=== PATIENT | male | born 1975 | race Hispanic/Latino ===

== ENCOUNTER 2018-07-27 16:56 | Emergency (ER) | payer OTHER ==
[~2018-07-27] VITALS: Ht 170.2 cm; Wt 127.0 kg
[2018-07-27] MEDS ORDERED: KETOROLAC TROMETHAMINE 30 MG/ML VIAL IM NR (17:30)
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
== END 2018-07-27 20:10 | disposition home or self-care (01) ==
LOC: FSED 16:56
DX: S00.83XA Contusion of other part of head, initial encounter (principal); S16.1XXA Strain of muscle, fascia and tendon at neck level, initial encounter; M54.2 Cervicalgia; V43.52XA Car driver injured in collision with other type car in traffic accident, initial encounter; Y92.488 Other paved roadways as the place of occurrence of the external cause
CPT/HCPCS: 70450; 72125; 99283

== ENCOUNTER 2019-11-20 18:26 | Inpatient (IN) | payer SELFPAY ==
[~2019-11-20] VITALS: Ht 170.2 cm; Wt 127.0 kg
[2019-11-20 10:50] VITALS: BP 125/85
[2019-11-20] MEDS ORDERED: MORPHINE SULFATE INJ 4 MG/ML INJ 1ML IV STA (18:54)
[2019-11-20] MEDS ORDERED: ONDANSETRON HCL INJ 2MG/ML 2ML 2 MG/ML VIAL IV STA (18:54)
--- NOTE | 2019-11-20 18:57 | Emergency Department Note ---
History of Present Illnes History of Present Illness Chief Complaint: Chest Pain History of Present Illness This is a 44 year old male CP since yesterday . Historian: Patient Arrival Mode: Car Onset (how long ago): day(s) Location: substernal CP Radiation: Reports extremity Severity: moderate Duration (how long): day(s) Timing of current episode: constant Progression: worsening Chronicity: new Relieving factors: none Exacerbating factors: none Associated symptoms: Reports chest pain, Reports shortness of breath Past Medical/Family History Physician Review I have reviewed the patient's past medical and family history. Any updates have been documented here. Past Medical History Recent Fever: No Clinical Suspicion of Infectio: No New/Unexplained Change in Ment: No Past Medical History: None Past Surgical History: Appendectomy, T&A Social History Smoking Cessation: Never Smoker Alcohol Use: None Any Illegal Drug Use: No Review of Systems Review of Systems Constitutional: Reports no symptoms EENTM: Reports no symptoms Cardiovascular: Reports chest pain Respiratory: Reports dyspnea Gastrointestinal: Reports no symptoms Genitourinary: Reports no symptoms Musculoskeletal: Reports no symptoms Integumentary: Reports no symptoms Neurological: Reports no symptoms Psychological: Reports no symptoms Endocrine: Reports no symptoms Hematological/Lymphatic: Reports no symptoms Physical Exam Related Data Allergies: Coded Allergies: No Known Allergies (Unverified , 07/27/18) Triage Vital Signs Vital Signs Date Time Temp Pulse Resp B/P (MAP) Pulse Ox O2 Delivery O2 Flow Rate FiO2 11/20/19 18:49 98.1 80 18 157/107 97 Room Air Vital signs reviewed: Yes Physical Exam CONSTITUTIONAL Constitutional: Present well-developed, Present well-nourished HENT HENT: Present normocephalic, Present atraumatic, Present oropharynx clear/maura st, Present nose normal HENT L/R: Present left ext ear normal, Present right ext ear normal EYES Eyes: Reports PERRL, Reports conjunctivae normal NECK Neck: Present ROM normal PULMONARY Pulmonary: Present effort normal, Present breath sounds normal CARDIOVASCULAR Cardiovascular: Present regular rhythm, Present heart sounds normal, Present capillary refill normal, Present normal rate GASTROINTESTINAL Abdominal: Present soft, Present nontender, Present bowel sounds normal GENITOURINARY Genitourinary: Present exam deferred SKIN Skin: Present warm, Present dry MUSCULOSKELETAL Musculoskeletal: Present ROM normal NEUROLOGICAL Neurological: Present alert, Present oriented x 3, Present no gross motor or sensory deficits PSYCHOLOGICAL Psychological: Present mood/affect normal, Present judgement normal Results Laboratory Lab results reviewed: Yes Laboratory comments Laboratory Tests Test 11/20/19 18:59 White Blood Count 9.65 x10e3/uL (4.8-10.8) Red Blood Count 4.94 x10e6/uL (4.3-5.7) Hemoglobin 14.5 g/dL (14.0-18.0) Hematocrit 45.2 % (38.2-49.6) Mean Corpuscular Volume 91.5 fL (81-99) Mean Corpuscular Hemoglobin 29.4 pg (28-32) Mean Corpuscular Hemoglobin Concent 32.1 g/dL (31-35) Red Cell Distribution Width 13.3 % (11.7-14.4) Platelet Count 147 x10e3/uL (140-360) Neutrophils (%) (Auto) 74.7 % (38.7-80.0) Lymphocytes (%) (Auto) 16.3 % (18.0-39.1) Monocytes (%) (Auto) 6.4 % (4.4-11.3) Eosinophils (%) (Auto) 1.8 % (0.0-6.0) Basophils (%) (Auto) 0.4 % (0.0-1.0) Neutrophils # (Auto) 7.2 (2.1-6.9) Lymphocytes # (Auto) 1.6 (1.0-3.2) Monocytes # (Auto) 0.6 (0.2-0.8) Eosinophils # (Auto) 0.2 (0.0-0.4) Basophils # (Auto) 0.0 (0.0-0.1) Absolute Immature Granulocyte (auto 0.04 x10e3/uL (0-0.1) Sodium Level 137 mmol/L (136-145) Potassium Level 3.8 mmol/L (3.5-5.1) Chloride Level 102 mmol/L (98-107) Carbon Dioxide Level 26 mmol/L (22-29) Anion Gap 12.8 mmol/L (8-16) Blood Urea Nitrogen 11 mg/dL (7-26) Creatinine 1.61 mg/dL (0.72-1.25) Estimat Glomerular Filtration Rate 47 ML/MIN (60-) BUN/Creatinine Ratio 7 (6-25) Glucose Level 110 mg/dL (74-118) Calcium Level 9.1 mg/dL (8.4-10.2) Total Bilirubin 0.4 mg/dL (0.2-1.2) Aspartate Amino Transf (AST/SGOT) 31 IU/L (5-34) Alanine Aminotransferase (ALT/SGPT) 21 IU/L (0-55) Alkaline Phosphatase 71 IU/L (40-150) Creatine Kinase 265 IU/L (30-200) Creatine Kinase MB 19.20 ng/mL (0-5.0) Troponin I 2.686 ng/mL (0-0.300) Total Protein 7.5 g/dL (6.5-8.1) Albumin 3.4 g/dL (3.5-5.0) Globulin 4.1 g/dL (2.3-3.5) Albumin/Globulin Ratio 0.8 (0.8-2.0) Imaging Imaging results reviewed: Yes Impressions [place] [id number] Patient Name: LUZ ANTONIO JR MR #: [id number] : 1975 Age/Sex: 44/M Req #: [id number] Adm Physician: Ordered by: ROSA WEI DO Report #: [id number] Location: ER Room/Bed: Procedure: [id number] DX/CHEST SINGLE (PORTABLE) Exam Date: 11/20/19 Exam Time: 1919 REPORT STATUS: Signed EXAMINATION: CHEST SINGLE (PORTABLE) INDICATION: Left-sided chest pain. COMPARISON: None FINDINGS: TUBES and LINES: None. LUNGS: Mild patchy density in the right lung base associated with mild to moderate elevation of the right hemidiaphragm atelectasis. PLEURA: No pleural effusion or pneumothorax. HEART AND MEDIASTINUM: The cardiomediastinal silhouette is unremarkable. BONES AND SOFT TISSUES: No acute osseous lesion. Soft tissues are unremarkable. UPPER ABDOMEN: No free air under the diaphragm. IMPRESSION: Right basilar atelectasis.. Signed by: Dr. Yaritza Grier M.D. on 11/20/2019 8:12 PM Dictated By: MARIZA GRIER MD, MD 11 Transcribed By: GENO on 11/20/192011 COPY TO: ROSA WEI DO~ Procedures 12 Lead ECG Interpretation ECG Interpretation : ECG: ECG 1 Pneumatic Tube Repairer: Interpreted by ED physician Date: Nov 20, 2019 Time: 18:56 Prior ECG tracings: reviewed Rhythm: sinus rhythm Rate: normal QRS axis: normal ST segments normal: Yes T waves normal: Yes Clinical Impression: normal ECG Critical Care Time Total Critical Care Time (min): 31 Critical care time exclusive o: separately billable procedures Critcal care necessary due to: cardiac failure Critcal care time spent by me: develop tx plan w patient/surrogate, discussion w consultants, examination of patient, obtaining hx from patient/surrogate, order/perform tx or interventions, order/review laboratory studies, order/review radiographic studies, pulse oximetry, re-evaluation of patient condition Assessment & Plan Medical Decision Making MDM 44 yom presents with CP . ACS, PE, costocondritis, Chest wall pain, and pneumothorax considered. labs, imaging and EKG reviewed . Plan to admit to the hospital for formal cardiac evaluation Assessment & Plan Final Impression: (1) Non-STEMI (non-ST elevated myocardial infarction) (2) Abnormal renal function Last Vital Signs Date Time Temp Pulse Resp B/P (MAP) Pulse Ox O2 Delivery O2 Flow Rate FiO2 11/20/19 18:49 98.1 80 18 157/107 97 Room Air ROSA WEI DO Nov 20, 2019 18:57
[2019-11-20] MEDS ORDERED: ASPIRIN 81 MG CHEW TAB PO ONE (19:00)
[2019-11-20 19:26] LABS: BASOPHILS % 0.4 % (0.0-1.0); EOSINOPHILS # (AUTO) 0.2 (0.0-0.4); EOSINOPHILS % 1.8 % (0.0-6.0); HEMATOCRIT 45.2 % (38.2-49.6); HEMOGLOBIN 14.5 g/dL (14.0-18.0); LYMPHOCYTES # (AUTO) 1.6 (1.0-3.2); LYMPHOCYTES % 16.3 % (18.0-39.1); MEAN CORPUSCULAR HEMOGLOBIN 29.4 pg (28-32); MEAN CORPUSCULAR HGB CONC 32.1 g/dL (31-35); MEAN CORPUSCULAR VOLUME 91.5 fL (81-99); MONOCYTES # (AUTO) 0.6 (0.2-0.8); MONOCYTES % 6.4 % (4.4-11.3); NEUTROPHILS # (AUTO) 7.2 (2.1-6.9); NEUTROPHILS % 74.7 % (38.7-80.0); PLATELET COUNT 147 x10e3/uL (140-360); RED BLOOD COUNT 4.94 x10e6/uL (4.3-5.7); RED CELL DISTRIBUTION WIDTH 13.3 % (11.7-14.4)
[2019-11-20 19:48] LABS: ALBUMIN 3.4 g/dL (3.5-5.0); ALBUMIN/GLOBULIN RATIO 0.8 (0.8-2.0); ANION GAP 12.8 mmol/L (8-16); CALCIUM 9.1 mg/dL (8.4-10.2); CREATININE, SERUM 1.61 mg/dL (0.72-1.25); POTASSIUM 3.8 mmol/L (3.5-5.1)
[2019-11-20 19:56] LABS: CREATINE KINASE MB 19.2 ng/mL (0-5.0)
--- NOTE | 2019-11-20 20:15 | Diagnostic Imaging Report ---
EXAMINATION: CHEST SINGLE (PORTABLE) INDICATION: Left-sided chest pain. COMPARISON: None FINDINGS: TUBES and LINES: None. LUNGS: Mild patchy density in the right lung base associated with mild to moderate elevation of the right hemidiaphragm atelectasis. PLEURA: No pleural effusion or pneumothorax. HEART AND MEDIASTINUM: The cardiomediastinal silhouette is unremarkable. BONES AND SOFT TISSUES: No acute osseous lesion. Soft tissues are unremarkable. UPPER ABDOMEN: No free air under the diaphragm. IMPRESSION: Right basilar atelectasis.. Signed by: Dr. Yaritza Barron M.D. on 11/20/2019 8:12 PM
[2019-11-20] MEDS ORDERED: ENOXAPARIN SODIUM INJ 100 MG/ML SYR SC STA (20:44)
[2019-11-20] MEDS ORDERED: ONDANSETRON HCL INJ 2MG/ML 2ML 2 MG/ML VIAL IV PRN (20:45)
[2019-11-20] MEDS ORDERED: CLOPIDOGREL BISULFATE 75 MG TAB PO ONE (20:45)
[2019-11-20] MEDS ORDERED: MORPHINE SULFATE INJ 4 MG/ML INJ 1ML IV PRN (20:45)
[2019-11-20] MEDS: ASPIRIN 81 MG CHEW TAB PO ONE ×2 (23:27→23:28)
[2019-11-20 23:55] VITALS: BP 140/102
[2019-11-21] VITALS (8 sets, daily range): BP systolic 125–147; BP diastolic 92–102
[2019-11-21] MEDS ORDERED: PHENAZOPYRIDIN100 MG PO (01:10)
[2019-11-21] MEDS ORDERED: BACTRIM DS TAB1 EACH PO (01:10)
--- NOTE | 2019-11-21 01:12 | NUR ---
PT IS TRANSFERRED FROM ER .PT IS AOX3 .RESPIRATIONS ARE EVEN AND UN LABORED .SKIN WARM AND DRY TO TOUCH RT AC 2O G S/L ,DENIES CHEST PAIN NOW ORIENTED PT TO THE ENVIRONMENT TELE #9 SHOWS SR.CALL LIGHT WITH IN REACH .CONTINUE TO MONITOR
[2019-11-21 06:02] LABS: BASOPHILS % 0.2 % (0.0-1.0); EOSINOPHILS # (AUTO) 0.1 (0.0-0.4); EOSINOPHILS % 1.3 % (0.0-6.0); HEMATOCRIT 42.5 % (38.2-49.6); HEMOGLOBIN 13.7 g/dL (14.0-18.0); LYMPHOCYTES # (AUTO) 2.1 (1.0-3.2); LYMPHOCYTES % 23.6 % (18.0-39.1); MEAN CORPUSCULAR HEMOGLOBIN 29.6 pg (28-32); MEAN CORPUSCULAR HGB CONC 32.2 g/dL (31-35); MEAN CORPUSCULAR VOLUME 91.8 fL (81-99); MONOCYTES # (AUTO) 0.7 (0.2-0.8); MONOCYTES % 7.4 % (4.4-11.3); NEUTROPHILS % 67.2 % (38.7-80.0); PLATELET COUNT 144 x10e3/uL (140-360); RED BLOOD COUNT 4.63 x10e6/uL (4.3-5.7); RED CELL DISTRIBUTION WIDTH 13.5 % (11.7-14.4)
--- NOTE | 2019-11-21 06:02 | NUR ---
PT C/O CHEST PAIN AND GIVEN MORPHINE ,PT RESTING ,CALL LIGHT WITH IN REACH ,CONTINUE TO MONITOR
[2019-11-21 06:45] LABS: ALBUMIN 3.1 g/dL (3.5-5.0); ALBUMIN/GLOBULIN RATIO 0.8 (0.8-2.0); ANION GAP 12.8 mmol/L (8-16); CREATININE, SERUM 1.71 mg/dL (0.72-1.25); POTASSIUM 3.8 mmol/L (3.5-5.1)
--- NOTE | 2019-11-21 07:00 | NUR ---
bedside shift report received pt in stable condition, denies pain at this time updated on poc vocied, understanding, call light in reach will continue to monitor
--- NOTE | 2019-11-21 07:14 | NUR ---
BEDSIDE REPORT GIVEN TO THE ONCOMING NURSE NO ACUTE DISTRESS NOTED
[2019-11-21 07:40] LABS: CREATINE KINASE MB 12.2 ng/mL (0-5.0)
--- NOTE | 2019-11-21 07:45 | NUR ---
consent signed for l heart cath, ivf infusing at 200cc/hr,will continue to monitor
[2019-11-21 08:00] LABS: CHOL/HDL RATIO 4.9 (3.9-4.7)
[2019-11-21] MEDS: SODIUM CHLORIDE 0.9% 1000ML 1,000 ML IV SCH ×3 (08:00→23:14)
--- NOTE | 2019-11-21 08:17 | Consultation ---
DATE OF CONSULTATION: 11/21/2019 REASON FOR CONSULTATION: Chest pain, elevated troponin. CHIEF COMPLAINT: Chest pain. HISTORY OF PRESENT ILLNESS: This is a 44-year-old male with no medical history. However, the patient presents to [facility] ER with complaints of chest pain, was noted elevated troponin of 2.6. Cardiology was consulted to evaluate the patient. The patient was loaded with Plavix and Lovenox on arrival to the ER. The patient was seen this a.m., reports 2 days ago woke up with chest pain, mild in nature, pressure tightness, however, . He went to clinic with symptoms, was given a prescription for possible UTI, however, was told to go to the nearest ER. The patient shows up in the ER yesterday with worsening chest pain, pressure, tightness, radiating to his left arm with shortness of breath and nausea. However, since then, the patient reports chest pain has improved, but continues with chest pain. Left heart catheterization discussed at length with the patient including risks and benefits. Questions were answered. The patient wishes to proceed with left heart catheterization. PAST MEDICAL HISTORY: Denies any medical history. PAST SURGICAL HISTORY: Reports appendectomy and had T and A. FAMILY HISTORY: Father at the age 58 from myocardial infarction. Mother apparently is alive with a history of CVA. SOCIAL HISTORY: He is . He is a food truck caterer. He denies any alcohol use or tobacco use. MEDICATIONS: Denies any medications; however, was prescribed antibiotics for possible UTI. ALLERGIES: NO KNOWN ALLERGIES. REVIEW OF SYSTEMS: GENERAL: Denies any weight changes, fatigue, weakness, fevers, chills, or night sweats. SKIN: No rashes or bruises. HEENT: Denies any vomiting. Positive for nausea. No vision change, blurred vision, double vision, epistaxis, sore throat, swollen gums, or stiff neck. CARDIAC: Positive for chest pain as in HPI. Shortness of breath. Positive dyspnea on exertion. No orthopnea, PND, or lower extremity edema. RESPIRATORY: Positive for shortness of breath. Denies any hemoptysis, any coughing, any recent sick contacts. GI: Reports good appetite. Positive nausea. No vomiting. Denies any melena, tarry or bloody stools. VASCULAR: Denies any lower extremity edema or claudication. MUSCULOSKELETAL: Denies any muscle weakness. Positive for generalized joint pains, back pains. NEUROLOGIC: Denies any numbness, tingling, tremors, paralysis, fainting, seizures. HEMATOLOGY: Denies any bleeding or bruising. ENDOCRINE: Denies any heat or cold intolerance, polyuria, polydipsia, or polyphagia. PHYSICAL EXAMINATION: VITAL SIGNS: Height 67 inches, weight 280 pounds. Current temperature 98, pulse 103, respiratory rate 24, blood pressure 140/100, pulse ox 95% on room air. GENERAL APPEARANCE: Stated age, reliable informant. SKIN: No rashes or bruises noted. HEENT: Normocephalic. Pupils equal and reactive. Extraocular movements intact. Trachea midline. No JVD. No carotid bruit. HEART: Regular rate and rhythm. PMI about 4th intercostal space. LUNGS: Bilateral breath sounds. Clear to auscultation. Good airway entry. ABDOMEN: Soft, nontender, and nondistended. No organomegaly noted. MUSCULOSKELETAL: Good muscle strength throughout. No lower extremity edema noted. VASCULAR: +2 radial pulses bilaterally, +1 DP and PT pulses bilaterally. NEUROLOGIC: Cranial nerves 2 through 12 seem intact. LABORATORY DATA: Sodium 138, potassium 3.0, chloride 104, bicarb 27, BUN 12, creatinine 1.7, glucose 108. Troponin 2.6. White count 9, hemoglobin of 13.7, hematocrit 42, and platelets 144. Chest x-ray showing some right basilar atelectasis. EKG showing normal sinus rhythm. ASSESSMENT: 1. Awp-[id number] myocardial infarction with typical symptoms. 2. Hypertension. 3. Acute kidney injury. 4. Obesity. PLAN: The patient presents with chest pain with elevated troponin, non-STEMI in nature. Left heart catheterization discussed at length with the patient including risks and benefits. Questions were answered. The patient wishes to proceed with left heart catheterization. The patient has been loaded with Plavix. Aspirin/statin/beta-lance therapy. We will start IV fluids. Discussed that with nurse. Echo to evaluate heart function and structure. Further recommendations post left heart catheterization. Thank you very much for this consult. Seen and examined Agree with note Dictated by Vaughn Jacome NP Jarrod Alicia MD DC/FLORY /[id number] MTDD
[2019-11-21] MEDS ORDERED: MIDAZOLAM HCL 2 MG/2 ML VIAL ONE (08:31)
[2019-11-21] MEDS ORDERED: LIDOCAINE HCL 2% LOCAL 20 ML VIAL ONE (08:32)
[2019-11-21] MEDS ORDERED: FENTANYL CITRATE/PF 100MCG/2 ML INJ ONE (08:32)
[2019-11-21] MEDS ORDERED: HEPARIN SOD/SOD CHLORIDE 2,000 ML ONE (08:32)
[2019-11-21] MEDS ORDERED: IOPAMIDOL 370 MG/ML 200 ML INFUS..BTL INJ ONE ×2 (08:33→20:20)
[2019-11-21] MEDS ORDERED: SODIUM CHLORIDE 0.9% 1000ML 1,000 ML ONE (08:33)
--- NOTE | 2019-11-21 08:48 | NUR ---
down to laborer demolition left in stable condition
[2019-11-21] MEDS ORDERED: SODIUM CHLORIDE 0.9% 50ML 0 ML ONE (08:55)
[2019-11-21] MEDS ORDERED: BIVALRIUDIN 250 MG/VIAL VIAL IV ONE (08:55)
[2019-11-21] MEDS ORDERED: EPTIFIBATIDE 75mg 100ML 0 ML ONE (08:56)
[2019-11-21] MEDS ORDERED: EPTIFIBATIDE 0 ML ONE (08:56)
--- NOTE | 2019-11-21 09:33 | History and Physical ---
CHIEF COMPLAINT: Chest pain, non-ST elevation myocardial infarction associated with increase in troponin. HISTORY OF PRESENT ILLNESS: The patient is a 44 years old male, who recently had a bladder prostate infection, was on Bactrim and Pyridium, came to the hospital with increasing chest pain. His cardiac enzyme troponin I is positive at 2.6. The patient was seen by Dr. Jarrod Alicia. The patient will need cardiac catheterization. He was loaded with Plavix and Lovenox. The patient is otherwise stable at this time. The patient had chest pain off and on for the past 2 days or so, but woke him up severely with chest pressure and tightness. The patient is otherwise stable. PAST MEDICAL HISTORY: Urinary tract infection and prostatitis. PAST SURGICAL HISTORY: Appendectomy. SOCIAL HISTORY: The patient does not smoke or use alcohol. He is a milk pickup truck driver. He is , lives with his family. FAMILY HISTORY: Significant for coronary artery disease. His father at age of 58 from myocardial infarction. Mother apparently with history of CVA. Hypertension. HOME MEDICATIONS: Bactrim and Pyridium. ALLERGIES: NO KNOWN ALLERGIES. REVIEW OF SYSTEMS: As mentioned above. PHYSICAL EXAMINATION: VITAL SIGNS: Temperature is 98, blood pressure 140/102, pulse rate is 103, respirations 22. GENERAL: The patient is not in acute distress. He is awake. HEENT: Normocephalic and atraumatic. He is anicteric. NECK: Supple grossly. PULMONARY: Diminished breath sounds. CARDIOVASCULAR: S1 and S2. Tachycardia. ABDOMEN: Soft, moderately obese. Positive bowel sounds. Nontender and nondistended. EXTREMITIES: No cyanosis or edema. NEUROLOGIC: No gross focal deficit. LABORATORY DATA: WBC is 9.6, hemoglobin 14, hematocrit 45, platelets 147. Chemistry; sodium 137, potassium 3.8, chloride 102, bicarb 26, BUN is 11, creatinine 1.6, glucose is 110. CK is 265, CK-MB 19, troponin I is 2.682 and then 3.2. LDL is 108, triglyceride 155. Chest x-ray, right basilar atelectasis. IMPRESSION: 1. [id number] myocardial infarction. 2. Mild acute kidney injury, most likely secondary to multifactorial including possible induced by Bactrim. PLAN: Continue with IV fluids. Cardiac catheterization. Repeat lab work. May need renal consult pending on tomorrow's creatinine. Mucomyst. We will monitor the patient closely. Echocardiogram has been ordered. MD ANILA Pyle/FLORY /[id number]
--- NOTE | 2019-11-21 10:00 | NUR ---
back to rm, r groin soft nontender, vs stable 131/91,81, pedal pulses palpable no other co voiced call light in reach will continue to monitor
[2019-11-21] MEDS: METOPROLOL TARTRATE 25 MG TAB PO SCH ×2 (10:19→16:38)
[2019-11-21] MEDS: ASPIRIN 81 MG ENTERIC COATED PO SCH (10:19)
--- NOTE | 2019-11-21 10:23 | Operative Report ---
DATE OF PROCEDURE: SURGEON: Jarrod Alicia MD PROCEDURE PERFORMED: Left cardiac catheterization. INDICATIONS: Chest pain with troponin at 3.8 and second troponin at 2.8. The patient continued to have chest pain. TECHNICAL DETAILS: After the usual sterile preparation and draping procedure, intravenous Versed and fentanyl given for sedation. Xylocaine for local anesthesia. A 4-Indonesian sheath established in the right common femoral artery. Regan left 4 and 3DRC catheters to engage the coronary, pigtail for hemodynamic measurement and left ventriculogram. At the end of the procedure, sheath was removed. Hemostasis was achieved manually. No complication. No blood loss. RESULTS: 1. Coronary angiogram: a. Left main: Free of disease. b. LAD: Large LAD with 30% proximal lesion. c. Circumflex coronary artery giving 1st obtuse marginal, which is small 2nd obtuse marginal is sizable. d. Right coronary artery, large artery with minimal plaquing. 2. Hemodynamics: Aorta pressure is 136/75, LV pressure 136/21. 3. Left ventricle is normal in size with normal contractility, ejection fraction of 50-60%. IMPRESSION: 1. Minimal coronary artery disease. 2. Normal left ventricular ejection fraction. 3. Elevated troponin cannot be explained on this angiogram. RECOMMEND: Further workup. Orders are written. COMPLICATIONS: None. BLOOD LOSS: None. MD GIANFRANCO CortesJ/MODL /[id number]
--- NOTE | 2019-11-21 10:25 | NUR ---
spoke to family updated on poc voiced understanding,
--- NOTE | 2019-11-21 10:30 | NUR ---
GROIN SOFT NONTENDER, DSG INTACT, PEDAL PULSE PALPABLE CALL LIGHT IN REACH WILL CONTINUE TO MONITOR
--- NOTE | 2019-11-21 11:00 | NUR ---
DSG TO RIGHT GROIN C/D/I, GROIN NONTENDER, SOFT, PEDAL PULSES PALPABLE, DENIES PAIN CALL LIGHT IN REACH WILL CONTINUE TO MONITOR
--- NOTE | 2019-11-21 11:25 | NUR ---
spoke with Dr. Alicia re: radiologist recommendation for ct in am, per md he wants ct done today. ct informed of test to be done at 1400
--- NOTE | 2019-11-21 12:00 | NUR ---
DSG TO RIGHT GROIN C/D/I, SOFT, NONTENDER, PEDAL PULSES PALPABLE, DENIES PAIN AT THIS TIME, CALL LIGHT IN REACH WILL CONTINUE TO MONITOR
--- NOTE | 2019-11-21 13:00 | NUR ---
DSG TO RIGHT GROIN C/D/I, GROIN SOFT, NONTENDER, PEDAL PULSES PALPABLE, DENIES PAIN AT THIS TIME,WILL CONTINUE TO MONITOR
--- NOTE | 2019-11-21 14:00 | NUR ---
PT ASSISTED TO BATHROOM, DALE PAIN, DSG TO RIGHT GROIN C/D/I, SOFT, NONTENDER, WILL CONTINUE TO MONITOR
[2019-11-21 14:24] LABS: CREATINE KINASE MB 14.6 ng/mL (0-5.0)
--- NOTE | 2019-11-21 16:48 | NUR ---
DOWN TO CT LEFT IN STABLE CONDITION
--- NOTE | 2019-11-21 17:10 | NUR ---
BACK TO RM, IVF INFUSING TO R AC 20G NO SS OF INFILTRATION NOTED, PT EATING, WILL CONTINUE TO MONITOR
--- NOTE | 2019-11-21 18:08 | Diagnostic Imaging Report ---
EXAM: CT Chest WITH contrast 11/21/2019 4:57 PM INDICATION: ^PE PROTOCOL ^[id number] ^[id number] ^Y COMPARISON: Chest radiograph 11/20/2019 TECHNIQUE: Spiral CT images of the chest were performed from the lung apices through the level of the adrenal glands after the IV contrast administration. Thin section reconstructions were obtained with special concentration on the pulmonary arteries. IV CONTRAST: 80 mL of Isovue-370 ORAL CONTRAST: None COMPLICATIONS: None RADIATION DOSE: Total DLP: 602.9 mGy*cm Estimated effective dose: (DLP x 0.015 x size factor) mSv CTDIvol has been reviewed. It is below the limits set by the Radiation Protocol Committee (RPC). FINDINGS: LINES/ TUBES: None. PULMONARY ARTERIES: No filling defects are identified in the main, right or left pulmonary arteries to their segmental and subsegmental levels, to suggest pulmonary embolism. The main pulmonary artery is normal in size. LUNGS AND AIRWAYS: Indeterminate mildly irregular part solid 18 mm pulmonary nodule with a large solid component measuring 15 mm. Airways are normal. PLEURA: The pleural spaces are clear. HEART AND MEDIASTINUM: The thyroid gland is normal. No mediastinal, hilar or axillary lymphadenopathy. The heart is normal in size. There is no pericardial effusion. The thoracic aorta is unremarkable. UPPER ABDOMEN: 1 cm cortical hypodensity in the right kidney on series 2, image 133. BONES: The visualized bony thorax is within normal limits. SOFT TISSUES: Unremarkable. IMPRESSION: No pulmonary embolism. Indeterminate 18 mm but solid pulmonary nodule in the right upper lobe with a large solid component may be infectious or neoplastic. Recommend further evaluation with PET/CT and pulmonary consolidation. No lymphadenopathy in the chest. No consolidations. Signed by: Dr. Consuelo Liao M.D. on 11/21/2019 6:05 PM
--- NOTE | 2019-11-21 18:20 | NUR ---
DR GABRIEL AND DR WEI NOTIFIED OF CT CHEST RESULTS, NO NEW ORDERS AT THIS TIME,
--- NOTE | 2019-11-21 18:57 | NUR ---
WALKING ROUNDS PERFORMED, RECEIVED PT LAYING SEMI FOWLERS IN BED, AAOX3, RR EVEN AND NON-LABORED, ON ROOM AIR. NO S/SX OF DISTRESS NOTED. (R) GROIN NOTED TO BE CDI. PEDAL PULSES NOTED. LEFT PT LAYING SEMI FOWLERS IN BED, BED IN LOW LOCKED POSITION, SIDE RAILS UPX2, CALL LIGHT AND PHONE WITHIN REACH.
[2019-11-21] MEDS ORDERED: SODIUM CHLORIDE 0.9% 50ML 50 ML ONE (20:20)
[2019-11-21] MEDS: ATORVASTATIN 20 MG TAB PO SCH (20:42)
[2019-11-22] VITALS (8 sets, daily range): BP systolic 129–143; BP diastolic 73–101
[2019-11-22] MEDS: SODIUM CHLORIDE 0.9% 1000ML 1,000 ML IV SCH ×3 (03:54→18:18)
[2019-11-22 06:19] LABS: BASOPHILS % 0.5 % (0.0-1.0); EOSINOPHILS # (AUTO) 0.1 (0.0-0.4); EOSINOPHILS % 2.3 % (0.0-6.0); HEMATOCRIT 41.9 % (38.2-49.6); HEMOGLOBIN 13.5 g/dL (14.0-18.0); LYMPHOCYTES # (AUTO) 1.5 (1.0-3.2); LYMPHOCYTES % 24.1 % (18.0-39.1); MEAN CORPUSCULAR HEMOGLOBIN 29.9 pg (28-32); MEAN CORPUSCULAR HGB CONC 32.2 g/dL (31-35); MEAN CORPUSCULAR VOLUME 92.7 fL (81-99); MONOCYTES # (AUTO) 0.5 (0.2-0.8); MONOCYTES % 7.9 % (4.4-11.3); NEUTROPHILS % 64.7 % (38.7-80.0); PLATELET COUNT 145 x10e3/uL (140-360); RED BLOOD COUNT 4.52 x10e6/uL (4.3-5.7); RED CELL DISTRIBUTION WIDTH 13.2 % (11.7-14.4)
[2019-11-22 06:42] LABS: ALBUMIN 2.9 g/dL (3.5-5.0); ALBUMIN/GLOBULIN RATIO 0.8 (0.8-2.0); ANION GAP 13.3 mmol/L (8-16); CALCIUM 8.7 mg/dL (8.4-10.2); CREATININE, SERUM 1.58 mg/dL (0.72-1.25); POTASSIUM 4.3 mmol/L (3.5-5.1)
[2019-11-22] MEDS: ASPIRIN 81 MG ENTERIC COATED PO SCH (08:34)
[2019-11-22] MEDS: METOPROLOL TARTRATE 25 MG TAB PO SCH ×2 (08:35→15:57)
--- NOTE | 2019-11-22 08:50 | NUR ---
Spoke with Lorenzo Mendes NP and stated that from Dr. Alicia's standpoint, patient is clear to d/c.
[2019-11-22] MEDS ORDERED: AZITHROMYCIN 250 MG TAB PO STA (12:23)
[2019-11-22] MEDS ORDERED: AZITHROMYCIN 250 MG TAB PO ONE (15:45)
--- NOTE | 2019-11-22 19:08 | NUR ---
WALKING ROUNDS PERFORMED, RECEIVED PT LAYING SEMI FOWLERS IN BED, AAOX3, RR EVEN AND NON-LABORED, ON ROOM AIR. NO S/SX OF DISTRESS NOTED. LEFT PT LAYING SEMI FOWLERS IN BED, BED IN LOW LOCKED POSITION, SIDE RAILS UPX2, CALL LIGHT AND PHONE WITHIN REACH.
--- NOTE | 2019-11-22 19:15 | Consultation ---
DATE OF CONSULTATION: Pulmonary Consultation Patient of Dr. Maral Wiley. PRIMARY CARE PHYSICIAN: None. HISTORY OF PRESENT ILLNESS: The patient was seen at the [facility] in the past, history of recent urinary tract infection, on Bactrim and Pyridium, had fever at that time presumably for urine infection. He denies cough, admitted with non ST elevation WI, but had no critical coronary artery disease on catheterization. ALLERGIES: NO KNOWN ALLERGY. FAMILY HISTORY: Positive for cancer of the lung. Also positive for strokes and premature coronary artery disease. SOCIAL HISTORY: Born in [facility]. He has had an appendectomy in the past. Works as a garbage truck driver. Rarely drinks. Does not smoke. PHYSICAL EXAMINATION: GENERAL: He is a burly white male, in no acute distress. VITAL SIGNS: Temperature 98.2, pulse 64, respirations 17, blood pressure 131/60. Denies sleep apnea or daytime hypersomnolence. LUNGS: Clear. HEART: Regular rhythm. ABDOMEN: Nontender, obese. EXTREMITIES: Nonedematous. IMPRESSION: One of right upper lobe nodule mix semi solid and ground-glass, could be inflammatory scar or tumor. Due to his family history, we suggest PET-CT as an outpatient after a course of Zithromax. If unable to obtain PET scan, follow up CT. Thank you for this kind referral. MD MEGAN Henley/MODL /[id number]
[2019-11-22] MEDS: ATORVASTATIN 20 MG TAB PO SCH (20:47)
[2019-11-23] VITALS: BP 129/89
[2019-11-23] MEDS: SODIUM CHLORIDE 0.9% 1000ML 1,000 ML IV SCH ×2 (02:43→09:55)
[2019-11-23 04:00] VITALS: BP 141/99
[2019-11-23 06:05] LABS: ANION GAP 13.8 mmol/L (8-16); CALCIUM 8.8 mg/dL (8.4-10.2); CREATININE, SERUM 1.44 mg/dL (0.72-1.25); POTASSIUM 3.8 mmol/L (3.5-5.1)
--- NOTE | 2019-11-23 07:00 | NUR ---
received bedside report. pt is resting in bed, no s/s of distress. call light within reach and instructed to call RN for help
[2019-11-23 07:55] VITALS: BP 161/102
[2019-11-23 07:58] VITALS: BP 161/102
[2019-11-23] MEDS ORDERED: AZITHROMYCIN 250 MG TAB PO SCH (09:00)
[2019-11-23] MEDS: METOPROLOL TARTRATE 25 MG TAB PO SCH (09:20)
[2019-11-23] MEDS: ASPIRIN 81 MG ENTERIC COATED PO SCH (09:20)
--- NOTE | 2019-11-24 02:59 | Discharge Summary ---
CONSULTANTS: 1. Jarrod Alicia MD. 2. Vaughn Caban MD. FINAL DIAGNOSES: 1. Prr-SH-[id number] myocardial infarction associated with left-sided chest pain, associated with increasing troponin I of 2.7, CK-MB of 14.6 and CK of 204. The patient is status post cardiac catheterization. There was no significant coronary obstruction and no percutaneous coronary intervention. 2. Incidental finding of CT chest shown indeterminate 18 mm solid pulmonary nodule in the right upper lobe. The patient recommended to have repeated either CT chest in a few months or PET scan. The patient is well aware. 3. Ikshmfub-sh-tfzntb obesity with possible obstructive sleep apnea. 4. Hypertension. 5. Acute renal injury secondary to Bactrim most likely. Creatinine on admission was 1.6, now down to 1.4. 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 The patient's chest x-ray unremarkable. CT chest showed a small 18 mm solid nodule right upper lobe as mentioned. Follow up on the recommendation of either repeated CT chest or PET scan. The patient also has hypertension. He had positive cardiac enzymes consistent with [id number] myocardial infarction with ejection fraction of 60% on echocardiogram. The patient underwent left heart catheterization done by Dr. Jarrod Alicia. There was no significant coronary disease, therefore no PCI. The patient recommended medical treatment. The patient is started on medication. His renal function has improved. The patient did start on Bactrim as an outpatient for urinary tract infection. The patient is otherwise stable. He has been receiving IV fluid rehydration. His creatinine is 1.4, BUN is 12. The patient is stable. He is urinating well. His LDL is 108, total cholesterol is 175 and his triglycerides 155. The patient is stable, discharged home today. He will follow up with Dr. Caban for outpatient PET scan or repeat CT scan. 1. Ecotrin 81 mg daily. 2. Lipitor 20 mg at bedtime. 3. Azithromycin 250 mg daily for 5 days. 4. Metoprolol tartrate 25 mg twice a day. The patient is to follow up with his family physician and Dr. Vaughn Caban for PET scan and sleep apnea study as per his wishes or his family physician for referral. The patient is stable, discharged home today. MD ANILA Pyle/FLORY /[id number]
== END 2019-11-23 11:21 | disposition home or self-care (01) | DRG 281 ==
LOC: ER 18:58 → ERHOLD 23:52 → MED/SURG 11-21 00:02
PROVIDERS: ADMIT Internal Medicine; ATTEND Internal Medicine
PROC: 4A023N7 Measurement of Cardiac Sampling and Pressure, Left Heart, Percutaneous Approach (ICD-10-PCS; principal; 2019-11-21)
PROC: B2111ZZ Fluoroscopy of Multiple Coronary Arteries using Low Osmolar Contrast (ICD-10-PCS; 2019-11-21)
PROC: B2151ZZ Fluoroscopy of Left Heart using Low Osmolar Contrast (ICD-10-PCS; 2019-11-21)
DX: I21.4 Non-ST elevation (NSTEMI) myocardial infarction (principal); Z68.41 Body mass index [BMI] 40.0-44.9, adult; N17.9 Acute kidney failure, unspecified; I25.110 Atherosclerotic heart disease of native coronary artery with unstable angina pectoris; R79.89 Other specified abnormal findings of blood chemistry; E66.9 Obesity, unspecified; R91.8 Other nonspecific abnormal finding of lung field; Z80.1 Family history of malignant neoplasm of trachea, bronchus and lung; Z11.59 Encounter for screening for other viral diseases; G47.33 Obstructive sleep apnea (adult) (pediatric); T36.8X5A Adverse effect of other systemic antibiotics, initial encounter; I10 Essential (primary) hypertension
CPT/HCPCS: 36415; 71045; 71260; 80048; 80053; 80061; 82550; 82553; 84484; 85025; 87635; 93005; 93306; 93458; 99152; 99153; 99284; C1766; C1769; C1887; J0583; J1327; J1650; J2001; J2250; J2270; J2405; J3010; J7030; Q9967

== ENCOUNTER 2020-06-12 15:26 | Observation (INO) | payer OTHER ==
[~2020-06-12] VITALS: Ht 172.7 cm; Wt 127.0 kg
[~2020-06-12 15:26] MED LIST: BACTRIM DS TAB1 EACH PO; PHENAZOPYRIDIN100 MG PO
[2020-06-12] MEDS ORDERED: NITROGLYCERIN 2% OINT 1 GM PKT TOP ONE (15:45)
[2020-06-12] MEDS ORDERED: SODIUM CHLORIDE 0.9% 500ML 500 ML IV ONE (15:45)
[2020-06-12 15:52] LABS: BASOPHILS % 0.6 % (0.0-1.0); EOSINOPHILS # (AUTO) 0.2 (0.0-0.4); EOSINOPHILS % 3.5 % (0.0-6.0); HEMATOCRIT 46.5 % (38.2-49.6); HEMOGLOBIN 15.4 g/dL (14.0-18.0); LYMPHOCYTES # (AUTO) 2.8 (1.0-3.2); MEAN CORPUSCULAR HEMOGLOBIN 29.1 pg (28-32); MEAN CORPUSCULAR HGB CONC 33.1 g/dL (31-35); MEAN CORPUSCULAR VOLUME 87.7 fL (81-99); MONOCYTES # (AUTO) 0.5 (0.2-0.8); MONOCYTES % 6.8 % (4.4-11.3); NEUTROPHILS # (AUTO) 3.3 (2.1-6.9); PLATELET COUNT 175 x10e3/uL (140-360); RED CELL DISTRIBUTION WIDTH 13.2 % (11.7-14.4)
[2020-06-12] MEDS ORDERED: ASPIRIN 81 MG CHEW TAB PO ONE (16:00)
[2020-06-12 16:02] LABS: INR 0.96; PROTHROMBIN TIME 13.4 seconds (11.9-14.5)
[2020-06-12 16:03] LABS: PARTIAL THROMBOPLASTIN TIME 28.1 seconds (23.8-35.5)
[2020-06-12 16:12] LABS: ALANINE AMINOTRANSFERASE 34 IU/L (0-55); ALBUMIN 3.9 g/dL (3.5-5.0); ALKALINE PHOSPHATASE 73 IU/L (40-150); BLOOD UREA NITROGEN 13 mg/dL (7-26); BUN/CREATININE RATIO 15 (6-25); CALCIUM 8.9 mg/dL (8.4-10.2); CARBON DIOXIDE 26 mmol/L (22-29); CHLORIDE 101 mmol/L (98-107); CREATINE KINASE 98 IU/L (30-200); CREATININE, SERUM 0.88 mg/dL (0.72-1.25); EST GLOMERULAR FILTRATION RATE > 60 ML/MIN (60-); GLUCOSE 117 mg/dL (74-118); SODIUM 138 mmol/L (136-145)
[2020-06-12] MEDS ORDERED: ONDANSETRON HCL INJ 2MG/ML 2ML 2 MG/ML VIAL IV PRN (16:45)
[2020-06-12] MEDS ORDERED: MORPHINE SULFATE INJ 2 MG/ML SYR IV PRN (16:45)
[2020-06-12] MEDS ORDERED: CLOPIDOGREL BISULFATE 75 MG TAB PO NR (17:00)
[2020-06-12] MEDS ORDERED: ENOXAPARIN SODIUM INJ 100 MG/ML SYR SC ONE (17:00)
[2020-06-12] MEDS: NITROGLYCERIN 2% OINT 1 GM PKT TOP SCH (17:16)
[2020-06-12] MEDS: FAMOTIDINE 20 MG/2 ML VIAL IV SCH (17:27)
[2020-06-12] MEDS ORDERED: TEMAZEPAM 7.5 MG CAP PO PRN (17:30)
[2020-06-12] MEDS ORDERED: POLYETHYLENE GLYCOL 3350 17 GM PACK PO PRN (17:30)
[2020-06-12] MEDS ORDERED: HYDRALAZINE HCL 20 MG/ML VIAL IV PRN (17:30)
[2020-06-12 20:00] VITALS: BP 114/83
[2020-06-12 20:45] VITALS: BP 114/83
[2020-06-12] MEDS: ACETAMINOPHEN 325 MG TAB PO PRN (23:23)
[2020-06-13] VITALS (8 sets, daily range): BP systolic 101–126; BP diastolic 60–85
[2020-06-13] MEDS: NITROGLYCERIN 2% OINT 1 GM PKT TOP SCH ×4 (00:16→18:34)
[2020-06-13 02:37] LABS: CREATINE KINASE MB 0.7 ng/mL (0-5.0)
[2020-06-13] MEDS: FAMOTIDINE 20 MG/2 ML VIAL IV SCH ×2 (04:56→15:49)
[2020-06-13] MEDS: ACETAMINOPHEN 325 MG TAB PO PRN ×2 (04:57→22:10)
[2020-06-13 06:23] LABS: BASOPHILS # (AUTO) 0.1 (0.0-0.1); BASOPHILS % 0.7 % (0.0-1.0); EOSINOPHILS # (AUTO) 0.2 (0.0-0.4); EOSINOPHILS % 3.1 % (0.0-6.0); HEMATOCRIT 42.8 % (38.2-49.6); HEMOGLOBIN 14.2 g/dL (14.0-18.0); LYMPHOCYTES # (AUTO) 2.2 (1.0-3.2); LYMPHOCYTES % 30.1 % (18.0-39.1); MEAN CORPUSCULAR HGB CONC 33.2 g/dL (31-35); MEAN CORPUSCULAR VOLUME 87.3 fL (81-99); MONOCYTES # (AUTO) 0.5 (0.2-0.8); MONOCYTES % 6.4 % (4.4-11.3); NEUTROPHILS # (AUTO) 4.4 (2.1-6.9); NEUTROPHILS % 59.6 % (38.7-80.0); PLATELET COUNT 144 x10e3/uL (140-360); RED CELL DISTRIBUTION WIDTH 13.4 % (11.7-14.4)
[2020-06-13 07:25] LABS: CREATINE KINASE MB 0.7 ng/mL (0-5.0)
[2020-06-13 07:42] LABS: ALANINE AMINOTRANSFERASE 30 IU/L (0-55); ALBUMIN 3.5 g/dL (3.5-5.0); ALBUMIN/GLOBULIN RATIO 1.1 (0.8-2.0); ALKALINE PHOSPHATASE 60 IU/L (40-150); ANION GAP 16.1 mmol/L (8-16); BLOOD UREA NITROGEN 11 mg/dL (7-26); BUN/CREATININE RATIO 13 (6-25); CALCIUM 8.6 mg/dL (8.4-10.2); CARBON DIOXIDE 23 mmol/L (22-29); CHLORIDE 103 mmol/L (98-107); CHOL/HDL RATIO 5.2 (3.9-4.7); CHOLESTEROL 182 MD/DL (0-199); CREATININE, SERUM 0.84 mg/dL (0.72-1.25); EST GLOMERULAR FILTRATION RATE > 60 ML/MIN (60-); GLUCOSE 102 mg/dL (74-118); HDL CHOLESTEROL 35 MG/DL (40-60); LDL CHOLESTEROL 92 MG/DL (60-130); POTASSIUM 4.1 mmol/L (3.5-5.1); SODIUM 138 mmol/L (136-145); TRIGLYCERIDES 277 MG/DL (0-149)
[2020-06-13 07:57] LABS: MAGNESIUM 1.9 MG/DL (1.3-2.1); PHOSPHORUS 3.4 MG/DL (2.3-4.7)
[2020-06-13] MEDS: CLOPIDOGREL BISULFATE 75 MG TAB PO SCH (08:10)
[2020-06-13] MEDS: ASPIRIN 81 MG ENTERIC COATED PO SCH (08:10)
[2020-06-13] MEDS: DOCUSATE SODIUM 100 MG CAP PO SCH ×2 (08:10→15:49)
[2020-06-13 08:18] LABS: THYROID STIMULATING HORMONE 0.973 uIU/mL (0.350-4.940)
[2020-06-14] VITALS: BP 106/69
[2020-06-14] MEDS: NITROGLYCERIN 2% OINT 1 GM PKT TOP SCH ×3 (00:17→12:00)
[2020-06-14 04:00] VITALS: BP 113/74
[2020-06-14] MEDS: FAMOTIDINE 20 MG/2 ML VIAL IV SCH (04:00)
[2020-06-14 05:23] LABS: BASOPHILS # (AUTO) 0.1 (0.0-0.1); BASOPHILS % 0.8 % (0.0-1.0); EOSINOPHILS # (AUTO) 0.3 (0.0-0.4); EOSINOPHILS % 3.6 % (0.0-6.0); HEMOGLOBIN 14.7 g/dL (14.0-18.0); LYMPHOCYTES # (AUTO) 2.3 (1.0-3.2); LYMPHOCYTES % 30.5 % (18.0-39.1); MEAN CORPUSCULAR HEMOGLOBIN 29.3 pg (28-32); MEAN CORPUSCULAR HGB CONC 33.4 g/dL (31-35); MEAN CORPUSCULAR VOLUME 87.6 fL (81-99); MONOCYTES # (AUTO) 0.5 (0.2-0.8); NEUTROPHILS # (AUTO) 4.4 (2.1-6.9); PLATELET COUNT 148 x10e3/uL (140-360); RED BLOOD COUNT 5.02 x10e6/uL (4.3-5.7); RED CELL DISTRIBUTION WIDTH 13.3 % (11.7-14.4)
[2020-06-14 05:45] LABS: ANION GAP 11.8 mmol/L (8-16); BLOOD UREA NITROGEN 10 mg/dL (7-26); BUN/CREATININE RATIO 11 (6-25); CALCIUM 8.7 mg/dL (8.4-10.2); CARBON DIOXIDE 28 mmol/L (22-29); CHLORIDE 101 mmol/L (98-107); CREATININE, SERUM 0.92 mg/dL (0.72-1.25); EST GLOMERULAR FILTRATION RATE > 60 ML/MIN (60-); GLUCOSE 93 mg/dL (74-118); POTASSIUM 3.8 mmol/L (3.5-5.1); SODIUM 137 mmol/L (136-145)
[2020-06-14 07:56] LABS: PLATELET MORPHOLOGY COMMENT NORMAL
[2020-06-14 08:01] VITALS: BP 114/83
[2020-06-14 08:16] VITALS: BP 114/83
[2020-06-14] MEDS ORDERED: REGADENOSON 0.4 MG/5 ML SYR IV ONE (10:46)
[2020-06-14 12:29] VITALS: BP 141/84
[2020-06-14] MEDS: DOCUSATE SODIUM 100 MG CAP PO SCH (12:30)
[2020-06-14] MEDS: ASPIRIN 81 MG ENTERIC COATED PO SCH (12:30)
[2020-06-14] MEDS: CLOPIDOGREL BISULFATE 75 MG TAB PO SCH (12:30)
[2020-06-14] MEDS: ACETAMINOPHEN 325 MG TAB PO PRN (12:33)
[2020-06-14] MEDS ORDERED: TEMAZEPAM 7.5 MG CAP PO PRN (13:00)
[2020-06-14] MEDS ORDERED: PLAVIX75 MG PO (14:30)
[2020-06-14] MEDS ORDERED: ASPIRIN EC81 MG PO (14:30)
[2020-06-14 16:36] VITALS: BP 121/86
== END 2020-06-14 16:32 | disposition home or self-care (01) ==
LOC: ER 15:40 → ERHOLD 16:48 → INTOOBSV 16:48 → MED/SURG 19:05
PROVIDERS: ADMIT Internal Medicine; ATTEND Internal Medicine
DX: R07.89 Other chest pain (principal); I25.2 Old myocardial infarction; I10 Essential (primary) hypertension; E78.00 Pure hypercholesterolemia, unspecified; E78.5 Hyperlipidemia, unspecified; R91.8 Other nonspecific abnormal finding of lung field; J98.11 Atelectasis; E66.01 Morbid (severe) obesity due to excess calories; Z20.822 Contact with and (suspected) exposure to COVID-19; Z79.02 Long term (current) use of antithrombotics/antiplatelets; Z79.82 Long term (current) use of aspirin; Z68.41 Body mass index [BMI] 40.0-44.9, adult; Z87.440 Personal history of urinary (tract) infections; Z82.49 Family history of ischemic heart disease and other diseases of the circulatory system
CPT/HCPCS: 36415 ×3; 71045; 78452; 80048; 80053 ×2; 80061; 82550 ×2; 82553 ×2; 82948; 83036; 83735 ×2; 83880; 84100; 84443; 84484 ×2; 85025 ×3; 85379; 85610; 85730; 93005; 93017; 99284; A9502; G0378 ×3; J1650; J2785; J7040; U0002